=== PATIENT | female | born 1950 | race Caucasian/White ===

== ENCOUNTER 2019-11-29 19:38 | Emergency (ER) | payer MEDICARE, OTHER ==
[2019-11-29 20:02] VITALS: BP 140/66; PULSE 79
[2019-11-29] MEDS ORDERED: predniSONE 20 MG Tab PO ONE (20:18)
--- NOTE | 2019-11-29 20:26 | EDM.PDOC ---
ED HPI GENERAL MEDICAL PROBLEM - General Chief Complaint: Skin Complaint Stated Complaint: PAIN Time Seen by Provider: 11/29/19 20:05 Source of Information: Reports: Patient, Old Records, RN History Limitations: Reports: No Limitations - History of Present Illness INITIAL COMMENTS - FREE TEXT/NARRATIVE: 69 yo female was hiking early yesterday and had to urinate in the [place]. She apparently grabbed poison abdulaziz leaves to wipe with. Now has progressive itching and burning of the perineum. She has been using topical Benedryl with only slight relief. Onset: Gradual Onset Date: 11/28/19 Duration: Hour(s):, Getting Worse Location: Reports: Pelvis Quality: Reports: Burning, Other (itching) Severity: Severe Improves with: Reports: Medication Worsens with: Reports: Other (time) Context: Reports: Other (See HPI) Associated Symptoms: Reports: No Other Symptoms Treatments MANAGER ADMINISTRATION: Reports: Other (see below) (topical Benedryl) Perineal Area Pain Score (Numeric/FACES): 4 - Related Data Allergies Allergy/AdvReac Type Severity Reaction Status Date / Time lidocaine Allergy Cannot Verified 11/29/19 20:03 [From Neosporin Plus] Remember neomycin sulfate Allergy Cannot Verified 11/29/19 20:03 [From Neosporin Plus] Remember polymyxin B Allergy Cannot Verified 11/29/19 20:03 [From Neosporin Plus] Remember polymyxin B sulfate Allergy Cannot Verified 11/29/19 20:03 [From Neosporin Plus] Remember pramoxine Allergy Cannot Verified 11/29/19 20:03 [From Neosporin Plus] Remember pramoxine HCl Allergy Cannot Verified 11/29/19 20:03 [From Neosporin Plus] Remember Home Meds: Home Meds Calcium Citrate/Magnesium/D3 [Calcium Citrate Chewable Wafer] 2 tab PO DAILY 11/19/17 [History] Cholecalciferol (Vitamin D3) [Vitamin D3] 1 tab PO DAILY 11/19/17 [History] Cyanocobalamin (Vitamin B-12) [Vitamin B-12] 1 tab PO DAILY 11/19/17 [History] Ferrous Sulfate [Iron] 1 tab PO ASDIRECTED 11/19/17 [History] Vitamin B Complex 1 tab PO DAILY 11/19/17 [History] predniSONE 20 mg PO BID #15 tab 08/29/20 [Rx] Past Medical History HEENT History: Reports: Impaired 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: Musculoskeletal History: Reports: Fracture Other Musculoskeletal History: l ankle fx - Infectious Disease History Infectious Disease History: Reports: Chicken Pox, Measles, Mumps - Past Surgical History GI Surgical History: Reports: Bariatric Procedure, Cholecystectomy, Colonoscopy Social & Family History - Tobacco Use Smoking Status *Q: Never Smoker Second Hand Smoke Exposure: No - Caffeine Use Caffeine Use: Reports: Coffee - Alcohol Use Days Per Week of Alcohol Use: 1 Number of Drinks Per Day: 1 Total Drinks Per Week: 1 - Recreational Drug Use Recreational Drug Use: No ED ROS GENERAL - Review of Systems Review Of Systems: See Below Constitutional: Reports: No Symptoms Skin: Reports: Pruritis (perineum only), Rash (perineal), Erythema (perineum) Neurological: Reports: No Symptoms ED EXAM, SKIN/RASH Exam: See Below Exam Limited By: No Limitations General Appearance: Alert, WD/WN, No Apparent Distress Respiratory/Chest: No Respiratory Distress Cardiovascular: Regular Rate, Rhythm Extremities: Normal Inspection, Normal Range of Motion, No Pedal Edema Neurological: Alert, Oriented, CN II-XII Intact, Normal Cognition, No Motor/Sensory Deficits Psychiatric: Normal Affect, Normal Mood Skin: Warm, Dry, Intact, Normal Color, Rash. No: No Rash Location, Skin: Pelvis Course - Vital Signs Last Recorded V/S: Last Vital Signs Temp 36.5 C 11/29/19 20:01 Pulse 79 11/29/19 20:01 Resp 16 11/29/19 20:01 BP 140/66 11/29/19 20:01 Pulse Ox 96 11/29/19 20:01 - Orders/Labs/Meds Meds: Medications Discontinued Medications Generic Name Dose Route Start Last Admin Trade Name Rafaelq PRN Reason Stop Dose Admin Prednisone 20 mg 11/29/19 20:18 Prednisone PO 11/29/19 20:19 ONETIME ONE Departure - Departure Time of Disposition: 20:24 Disposition: Home, Self-Care 01 Condition: Good Clinical Impression: Contact dermatitis Qualifiers: Contact dermatitis type: allergic Contact dermatitis trigger: non-food plants Qualified Code(s): L23.7 - Allergic contact dermatitis due to plants, except food - Discharge Information *PRESCRIPTION DRUG MONITORING PROGRAM REVIEWED*: Not Applicable *COPY OF PRESCRIPTION DRUG MONITORING REPORT IN PATIENT SAMIR: Not Applicable Prescriptions: predniSONE 20 mg PO BID #15 tab Referrals: Erazo,Clifford Sr, MD [Primary Care Provider] - Additional Instructions: Use prednisone as directed. Take diphenhydramine 50 mg every 4-6 hrs. Calamine lotion may offer some added relief. Recheck with your provider if not improving. Sepsis Event Note (ED) - Evaluation Sepsis Screening Result: No Definite Risk - Focused Exam Vital Signs: Vital Signs Temp Pulse Resp BP Pulse Ox 11/29/19 20:01 36.5 C 79 16 140/66 96
== END 2019-11-29 20:34 | disposition home or self-care (01) ==
LOC: JP.ED 19:38
DX: L23.7 Allergic contact dermatitis due to plants, except food (principal); Z88.1 Allergy status to other antibiotic agents; Z88.4 Allergy status to anesthetic agent; Z88.8 Allergy status to other drugs, medicaments and biological substances
CPT/HCPCS: 99282; J7512; 99283